=== PATIENT | male | born 1970 | race Caucasian/White ===

== ENCOUNTER 2024-10-19 10:18 | Day surgery (SDC) | payer OTHER ==
[2024-10-19] MEDS ORDERED: Sodium Chloride 0.9(Preservative Free) 10 ML IJ ONE (10:19)
[2024-10-19] MEDS ORDERED: LIDOCAINE HCL 1% AMPUL 5 ML IJ ONE (10:19)
[2024-10-19] MEDS ORDERED: dexAMETHasone sodium phosphate IJ ONE (10:19)
[2024-10-19] MEDS ORDERED: propofoL IV ONE (11:54)
--- NOTE | 2024-10-19 13:40 | XRAY ---
Indication: Left L4-S1 transforaminal RITA. Intraoperative fluoroscopy provided for 18 seconds. 3 digital spot image submitted for interpretation demonstrates posterior needle tips projecting over expected left L4 and L5 nerve roots. Small amount of contrast injected for needle tip placement. Correlate with intraoperative findings/report.
--- NOTE | 2024-10-19 13:42 | XRAY ---
Indication: Left piriformis injection. Intraoperative fluoroscopy provided for 12 seconds. Single digital spot image submitted for interpretation demonstrates posterior needle tip projecting over left piriformis. Small amount of contrast injected for needle tip placement. Correlate with intraoperative findings/report.
--- NOTE | 2024-10-19 14:04 | XRAY ---
12 seconds of fluoroscopy was used in surgery for a left piriformis injection.
--- NOTE | 2024-10-19 14:04 | XRAY ---
18 seconds of fluoroscopy was used in surgery for a left L4-S1 transforaminal RITA.
== END 2024-10-19 12:24 | disposition home or self-care (01) ==
LOC: SDC-PAIN 10:18
PROVIDERS: ATTEND Psychiatry & Neurology Pain Medicine
DX: M54.16 Radiculopathy, lumbar region (principal); M79.18 Myalgia, other site
CPT/HCPCS: 20552; 64483; 64484; 72100; 72170; 77002; 77003; J1100; J2704; Q9966